=== PATIENT | female | born 1965 | race Caucasian/White ===

== ENCOUNTER 2019-10-31 05:49 | Emergency (ER) | payer BC ==
--- NOTE | 2019-10-31 07:22 | EDM.PDOC ---
ED HPI GENERAL MEDICAL PROBLEM - General Chief Complaint: Eye Problems Stated Complaint: CONTACT LOST IN RIGHT EYE Time Seen by Provider: 10/31/19 06:56 Source of Information: Reports: Patient, RN Notes Reviewed - History of Present Illness INITIAL COMMENTS - FREE TEXT/NARRATIVE: L eye sore and irritated since last evening. She thinks she must have a contact under a lid. Has been unable to find it or get it out. She thought she had removed by contacts last evening as usual. She has had some mattery discharge L eye this morning. No fever, chills, cough or other unusual sx. Left Eye Pain Score (Numeric/FACES): 4 - Related Data Allergies Allergy/AdvReac Type Severity Reaction Status Date / Time Penicillins Allergy Severe Cannot Verified 10/31/19 06:26 Remember Home Meds: Home Meds . [No Known Home Meds] 10/31/19 [History] Past Medical History - Past Health History Medical/Surgical History: Denies Medical/Surgical History Social & Family History - Tobacco Use Smoking Status *Q: Never Smoker - Recreational Drug Use Recreational Drug Use: No ED ROS GENERAL - Review of Systems Review Of Systems: See Below Constitutional: Denies: Fever, Chills HEENT: Reports: Contact Lenses, Eye Discharge, Eye Pain. Denies: Rhinitis, Sinus Problem, Throat Pain Respiratory: Denies: Shortness of Breath, Cough GI/Abdominal: Reports: No Symptoms Musculoskeletal: Reports: No Symptoms Skin: Reports: No Symptoms Neurological: Reports: No Symptoms ED EXAM GENERAL W FULL EYE - Physical Exam Exam: See Below General Appearance: Alert, Mild Distress Eye Exam: Left Eye: Conjunctival Injection, Bilateral Eye: PERRL Conjunctiva & Sclera: Left: Discharge, Injected Cornea Exam: Bilateral: Normal Appearance Nose: Normal Inspection Throat/Mouth: Normal Inspection Head: No: Facial Swelling Neck: Supple Respiratory/Chest: No Respiratory Distress Neurological: Alert, Oriented, No Motor/Sensory Deficits Skin Exam: Warm, Normal Color, No Rash Course - Vital Signs Last Recorded V/S: Last Vital Signs Temp 96.8 F L 10/31/19 06:24 Pulse 97 10/31/19 06:24 Resp 16 10/31/19 06:24 BP 152/99 H 10/31/19 06:24 Pulse Ox 98 10/31/19 06:24 - Orders/Labs/Meds Orders: Active Orders 24 hr Category Date Time Status CULTURE WOUND [RM] Stat Lab 10/31/19 07:20 Received - Re-Assessments/Exams Free Text/Narrative Re-Assessment/Exam: 10/31/19 07:51 There is no contact in or on her L eye, there is white exudate upper and lower lids and under the lids, she has a bacterial conjunctivitis L eye, culture obtained, discharge instr. as documented. Departure - Departure Time of Disposition: 07:19 Disposition: Home, Self-Care 01 Condition: Fair Clinical Impression: Conjunctivitis Qualifiers: Conjunctivitis type: acute Acute conjunctivitis type: bacterial Laterality: left Qualified Code(s): H10.32 - Unspecified acute conjunctivitis, left eye - Discharge Information Instructions: Bacterial Conjunctivitis, Adult, [id number] Referrals: Dominique Alcala PA-C [Primary Care Provider] - Forms: ED Department Discharge, ED Return to Work/School Form Additional Instructions: Warm compresses q 3 to 4 hr today followed by antibiotic ointment. Than warm compresses 3 times daily followed by the antibiotic ointment. A culture has been obtained. Follow up with Dominique at the clinic Saturday for recheck and for culture result. Return to ED as needed if symptoms worsening in any way. Tylenol 2 to 3 time daily will be helpful for the discomfort. Sepsis Event Note - Evaluation Sepsis Screening Result: No Definite Risk - Focused Exam Vital Signs: Vital Signs Temp Pulse Resp BP Pulse Ox 10/31/19 06:24 96.8 F L 97 16 152/99 H 98 Date Exam was Performed: 10/31/19 Time Exam was Performed: 07:48 - My Orders Last 24 Hours: My Active Orders 10/31/19 07:20 CULTURE WOUND [RM] Stat - Assessment/Plan Last 24 Hours: My Active Orders 10/31/19 07:20 CULTURE WOUND [RM] Stat
== END 2019-10-31 07:40 | disposition home or self-care (01) ==
LOC: JD.ED 05:49
DX: H10.32 Unspecified acute conjunctivitis, left eye (principal); Z88.0 Allergy status to penicillin
CPT/HCPCS: 87070; 99283